=== PATIENT | male | born 1965 | race Hispanic/Latino ===

== ENCOUNTER 2022-01-15 10:24 | Emergency (ER) | payer BC, SELFPAY ==
[2022-01-15 10:39] VITALS: BP 134/74; PULSE 94; RESP 16; TEMP 36.1; O2SAT 98
--- NOTE | 2022-01-15 10:56 | ED.URI ---
HPI - URI/Sore Throat General Chief Complaint: Upper Respiratory Infection Stated Complaint: body aches Time Seen by Provider: 01/15/22 10:55 Source: patient and RN notes reviewed Mode of arrival: ambulatory Limitations: no limitations History of Present Illness HPI Narrative: 56 y/o male presented for c/o body aches and mild cough for 2 days. Endorses tested positive for Flu A 3 days ago. Patient denies sob, wheezing, vomiting. Taking Tylenol for symptoms. Declines flu test. MD elicited complaint: cough Related Data Allergies Allergy/AdvReac Type Severity Reaction Status Date / Time No Known Allergies Allergy Verified 01/15/22 10:55 Review of Systems Review of Systems: CONSTITUTIONAL: Endorses malaise, fever EYES: Denies visual changes, redness, or discharge ENT: denies rhinorrhea, congestion, sinus pain, otalgia, sore throat CARDIOVASCULAR: Denies chest pain, palpitations, edema RESPIRATORY: Reports cough, Denies dyspnea GASTROINTESTINAL: Denies abdominal pain, nausea, vomiting, diarrhea SKIN: Denies rash or itching MUSCULOSKELETAL: Endorses myalgia NEUROLOGIC: Denies headache Exam Narrative: GENERAL: well-appearing EYES: PERRLA, conjunctivae clear ENT: Mucous membranes moist. TMs pearly castellon with light reflex bilaterally; no tragal tenderness. Oropharynx erythematous without lesions or exudate, no drooling, no hoarseness, no trismus, uvula midline. NECK: Supple. No lymphadenopathy CHEST: Clear to auscultation, breath sounds equal. HEART: Regular rate and rhythm. No murmur heard. SKIN: Warm, dry, no rash. NEURO: Alert and oriented x3. Course Course Emergency Course: Patient is aware of diagnosis, understands and agrees to treatment plan. Anticipatory guidance given. Patient agrees to follow-up as directed and is aware of reasons to seek care at the emergency department. Portions of this record may have been created with voice recognition software Level of Care: Express Care Visit Vital Signs Vital signs: Vital Signs Temperature 96.9 F L 01/15/22 10:39 Pulse Rate 94 01/15/22 10:39 Respiratory Rate 16 01/15/22 10:39 Blood Pressure 134/74 01/15/22 10:39 Pulse Oximetry 98 01/15/22 10:39 Oxygen Delivery Room Air 01/15/22 10:39 Temperature 96.9 F L 01/15/22 10:39 Pulse Rate 94 01/15/22 10:39 Respiratory Rate 16 01/15/22 10:39 Blood Pressure 134/74 01/15/22 10:39 Pulse Oximetry 98 01/15/22 10:39 Oxygen Delivery Room Air 01/15/22 10:39 reviewed MDM - URI/Sore Throat MDM Narrative Medical decision making narrative: Pt declined influenza test. Will give Rx tamiflu due to sx and known exposure. Advised supportive measures and signs/symptoms to go to the ER. Pt is appropriate for outpt treatment and f/u. Differential Diagnosis Differential diagnosis: Likely upper respiratory infection, sinusitis and viral infection Discharge Plan Discharge Clinical Impression: Viral infection, Exposure to influenza Patient Disposition: Home, Self-Care Condition: Stable Instructions: Influenza (ED) Additional Instructions: Exposici?n a la influenza Evite las multitudes hasta que est? roque de fiebre marga 24 horas sin el uso de medicamentos para reducir la fiebre, o los s?ntomas hayan alejo Descansar. Beber mucho l?quido. Tylenol 1000 mg cada 8 horas seg?n sea necesario para el dolor/fiebre sin receta El jarabe para la tos puede causar somnolencia; evite conducir o t?sahni de noche. Seguimiento con soares proveedor de atenci?n primaria seg?n sea necesario en 1-2 semanas Vaya a la nick de emergencias si empeoran los s?ntomas o si tiene inquietudes. Patient Language: Wolof Prescriptions: New oseltamivir [Tamiflu] 75 mg capsule 75 mg PO Q12H 5 Days Qty: 10 0RF Follow-up/Referrals: Pawel,MAKEDA Moser [Primary Care Provider] - Time of Disposition: 11:09
== END 2022-01-15 11:16 | disposition home or self-care (01) ==
PROVIDERS: Emergency Provider Nurse Practitioner Family; PCP Registered Nurse
DX: B34.9 Viral infection, unspecified (principal); Z20.828 Contact with and (suspected) exposure to other viral communicable diseases
CPT/HCPCS: 99203; G0463